=== PATIENT | male | born 1990 | race Caucasian/White ===

== ENCOUNTER 2024-12-11 08:24 | Emergency (ER) | payer BC, MEDICAID ==
[~2024-12-11] VITALS: Ht 172.7 cm; Wt 88.5 kg
[2024-12-11] MEDS ORDERED: CEFTRIAXONE /D5W 50ML IVPB **ER PYXIS IV ONE (09:00)
[2024-12-11] MEDS: IV NORMAL SALINE 1000 ML BAG IV ONE (09:00)
[2024-12-11] MEDS ORDERED: DEXAMETHASONE SOD PHOSPHATE 4 MG INJ ONE (09:00)
[2024-12-11 09:03] LABS: PLATELET COUNT (AUTO) 235 K/uL (152-348); RED BLOOD CELL COUNT(AUTO) 5.42 MIL/uL (4.06-5.63); RED CELL DISTRIBUTION WIDTH 13.1 % (12.1-16.2); WHITE BLOOD COUNT (AUTO) 9.8 K/uL (3.6-10.2)
[2024-12-11] MEDS: CEFTRIAXONE 1 G in IV DEXTROSE 5% 50 ML IV ONE (09:10)
[2024-12-11] MEDS: DEXAMETHASONE SOD PHOSPHATE 4 MG INJ IV ONE (09:10)
[2024-12-11 09:41] LABS: CREATININE 1.2 mg/dL (0.6-1.3); SODIUM SERUM 138.0 mmol/L (136-145); UREA NITROGEN, BLOOD 19.0 mg/dL (7-18)
[2024-12-11] MEDS ORDERED: PRED20TA PO (10:05)
[2024-12-11] MEDS ORDERED: ALBU6.7H9 INH (10:05)
[2024-12-11] MEDS ORDERED: AMOX-430 PO (10:05)
[2024-12-11 10:30] VITALS: BP 110/69; TEMP 98.1; O2SAT 99
== END 2024-12-11 10:31 | disposition home or self-care (01) ==
LOC: ER 08:24
DX: J20.9 Acute bronchitis, unspecified (principal); Z79.52 Long term (current) use of systemic steroids; Z20.822 Contact with and (suspected) exposure to COVID-19
CPT/HCPCS: 99284; 96365; 71045; 96375; 87426; 80048; 85025; 36415; J0696; J1100; J7040; A4606; A4663